=== PATIENT | female | born 1955 | race Caucasian/White ===

== ENCOUNTER 2020-10-30 12:08 | Emergency (ER) | payer MEDICARE, OTHER ==
[~2020-10-30 12:08] MED LIST: CLINDAMYCIN HC300 MG PO; KEFLEX500 MG PO
[2020-10-30 13:03] LABS: HEMOGLOBIN 15.7 gm/dl (12.3-15.3); RED BLOOD COUNT 5.19 M/UL (4.00-5.10); WHITE BLOOD COUNT 14.2 K/UL (4.5-11.0)
[2020-10-30 13:32] LABS: BUN/CREATININE RATIO 36 (0-10)
[2020-10-30] MEDS ORDERED: ZOFRAN ODT 4 MG4 MG SL (16:07)
[2020-10-30] MEDS ORDERED: PEDIALYTE1000 ML PO (16:09)
== END 2020-10-30 17:41 | disposition home or self-care (01) ==
LOC: ER1 12:08
PROVIDERS: Physician Assistant
DX: K52.9 Noninfective gastroenteritis and colitis, unspecified (principal); E87.1 Hypo-osmolality and hyponatremia; E11.9 Type 2 diabetes mellitus without complications; I10 Essential (primary) hypertension; Z90.49 Acquired absence of other specified parts of digestive tract; Z90.710 Acquired absence of both cervix and uterus; Z88.2 Allergy status to sulfonamides; Z88.1 Allergy status to other antibiotic agents; Z79.82 Long term (current) use of aspirin
CPT/HCPCS: 80053; 81001; 82150; 82550; 82553; 83690; 83874; 84484; 85025; 96374; 96376; 99284; J2405; J7030; Q9967